=== PATIENT | male | born 1950 | race Caucasian/White ===

== ENCOUNTER 2017-04-10 16:17 | Emergency (ER) | payer MEDICARE, MEDICAID ==
[~2017-04-10] VITALS: Ht 190.5 cm; Wt 77.1 kg
[2017-04-10 16:47] VITALS: BP_SYST 125
--- NOTE | 2017-04-10 17:07 | NUR ---
Ambulatory to bed 6 steady gait with walker
--- NOTE | 2017-04-10 17:10 | NUR ---
Patient to ER via triage with walker for evaluation of abdominal pain with constipation x 2 weeks. Patient is awake, alert and oriented in no acute distress, vital signs stable, respirations even and unlabored, skin warm and dry to touch. Patient denies nausea, vomiting, diarrhea, bloody stool, no flank or back pain. No recent travel, or change in diet. Awaiting evaluation by ER MD, will continue to observe and assess
--- NOTE | 2017-04-10 17:10 | NUR ---
Dr Gage at bedside to evaluate patient.
[2017-04-10] MEDS ORDERED: NACL 0.9% 1,000 ML IV ONE ×2 (17:12→19:45)
[2017-04-10 17:44] LABS: BASOPHILS % (AUTO) 0.5 % (0.0-2.0); EOSINOPHILS % (AUTO) 0.5 % (0.0-4.0); HEMATOCRIT 36.6 % (36-54); HEMOGLOBIN 12.5 g/dL (14.0-18.0); LYMPHOCYTES # (AUTO) 0.7 K/uL (1.0-5.5); LYMPHOCYTES % (AUTO) 11.6 % (20.5-51.5); MEAN CORPUSCULAR HEMOGLOBIN 31 pg (27-31); MEAN CORPUSCULAR HGB CONC 34 % (32-36); MEAN CORPUSCULAR VOLUME 90 fL (79.0-98.0); MONOCYTES # (AUTO) 0.3 K/uL (0.0-1.0); MONOCYTES % (AUTO) 5.4 % (1.7-9.3); NEUTROPHILS # (AUTO) 5.1 K/uL (1.8-7.7); PLATELET COUNT (AUTO) 252 K/uL (130-430); RED BLOOD CELL COUNT(AUTO) 4.06 MIL/uL (4.2-6.2); RED CELL DISTRIBUTION WIDTH 12.5 % (9.0-15.0); WHITE BLOOD COUNT (AUTO) 6.1 K/uL (4.8-10.8)
[2017-04-10 18:04] LABS: CALCIUM 10.1 mg/dL (8.4-11.0); CREATININE 1.04 mg/dL (0.55-1.30); POTASSIUM 4.2 mmol/L (3.5-5.1)
[2017-04-10 18:07] LABS: PROTHROMBIN TIME 10.2 SECS (9.5-12.5)
[2017-04-10 18:09] LABS: ALBUMIN 4.2 g/dL (3.4-4.8); TOTAL BILIRUBIN 0.2 mg/dL (0.0-1.0)
--- NOTE | 2017-04-10 18:25 | NUR ---
Patient to radiology for Lumbar CT via gurney in stable condition.
[2017-04-10 18:28] LABS: BILIRUBIN,URINE NEGATIVE (NEGATIVE); BLOOD, URINE NEGATIVE (NEGATIVE); CLARITY/URINE CLEAR (CLEAR); COLOR,URINE YELLOW (YELLOW); GLUCOSE,URINE 3+ (NEGATIVE); KETONES,URINE NEGATIVE (NEGATIVE); LEUKOCYTE ESTERASE ,URINE NEGATIVE (NEGATIVE); NITRITE, URINE NEGATIVE (NEGATIVE); PH,URINE 7.5 (5.0-8.0); PROTEIN URINE NEGATIVE (NEGATIVE); UROBILINOGEN,URINE 0.2 (0.2-1.0)
--- NOTE | 2017-04-10 18:35 | NUR ---
Patient back from CT in stable condition.
--- NOTE | 2017-04-10 19:10 | NUR ---
#20 IV started in right hand on second attempt, using aseptic technique. Patient tolerated well. Opsite applied, and secured with tape. IV fluids infusing without difficulty. Awaiting results and dispo.
[2017-04-10] MEDS ORDERED: GLIP10TA74 PO (20:06)
[2017-04-10] MEDS ORDERED: SITA100T7 PO (20:07)
[2017-04-10] MEDS ORDERED: METF1000 PO (20:07)
[2017-04-10] MEDS ORDERED: HYT1 PO (20:07)
[2017-04-10] MEDS ORDERED: HYDR-3606 PO (20:07)
[2017-04-10] MEDS ORDERED: OMEP20CA10 PO (20:07)
[2017-04-10] MEDS ORDERED: ROSU20TA PO (20:07)
[2017-04-10] MEDS ORDERED: IBUP-1969 PO (20:07)
--- NOTE | 2017-04-10 20:10 | NUR ---
Medication reconciliation completed with information provided by patient. Any prior medication reconciliation on file was reviewed and corrected. Patient resting quietly in no acute distress, awaiting dispo
--- NOTE | 2017-04-10 20:15 | NUR ---
Scanner did not recognize IV fluid, had to manually enter.
[2017-04-10 21:10] VITALS: BP_SYST 140
--- NOTE | 2017-04-10 21:10 | NUR ---
Patient given written and verbal discharge instructions and verbalizes understanding. ER MD discussed with patient the results and treatment provided. Patient in stable condition. ID arm band removed. IV catheter removed intact and dressing applied, no active bleeding. Rx of Lactulose given. Patient educated on pain management and to follow up with PMD. Pain Scale 2. Opportunity for questions provided and answered. Patient left ER ambulating with slow, steady gait in no acute distress.
== END 2017-04-10 21:10 | disposition home or self-care (01) ==
LOC: SED 16:17
DX: G89.29 Other chronic pain (principal); M54.5 Low back pain; K59.00 Constipation, unspecified; I10 Essential (primary) hypertension; E11.40 Type 2 diabetes mellitus with diabetic neuropathy, unspecified
CPT/HCPCS: 36415; 72131; 74021; 80053; 81003; 82150; 83690; 85025; 85610; 85730; 96360; 96361; 99285; J7030